=== PATIENT | male | born 1950 | race Caucasian/White ===

== ENCOUNTER 2024-06-11 10:04 | Emergency (ER) | payer MEDICARE, OTHER, SELFPAY ==
[2024-06-11 10:17] VITALS: BP 135/59
--- NOTE | 2024-06-11 11:02 | ED.GENMED ---
History of Present Illness
General
Chief Complaint: Eye Problems
Time Seen by Provider: 06/11/24 10:34
History of Present Illness
History of Present Illness:
Patient presents to the emergency department with left eye pain. Pain occurred just after touching an milk tree that fell over at his house. This contains a toxic sap. There are no spines. States he has had severe burning in the eye
since. He rinsed out thoroughly with water at home. He does not wear contact lenses. Denies light sensitivity
Past History
Past History
ED Past Medical History: CAD
ED Past Surgical History: Cardiac
Social History
Tobacco: Non-smoker
Alcohol: None
Phy Exam
Physical Exam
Physical Exam:
General: No acute distress
Head: NCAT
EYES is erythematous and injected. There is limbic sparing. Pupil is regular and round and reactive to light and accommodation. It is equal sizes with the pupil on the right. There is no corneal haziness. There is no fluorescein uptake. pH is
7. Extraocular movements are intact.
Neck, Normal in appearance, no swelling
Respiratory: No Respiratory distress
Abdomen: No distension
Ext: no edema
Neuro: VILLA, AOx4
Psych: Normal affect
Skin: Normal color
Course
Orders/Labs/Results
Orders:
Orders
06/11/24 11:54
Tetracaine HCl [Tetracaine 0.5% Ophthalmic Solution] 1 drop .ROUTE .STK-MED ONE
06/11/24 11:55
Purified Water Eye Wash [Dacriose Eye Wash Solution] 120 ml .ROUTE .STK-MED ONE
Vital Signs
Initial and Last Documented VS:
Initial Vital Signs
Temp Pulse Resp BP Pulse Ox
97.5 F 54 18 135/59 93
06/11/24 10:17 06/11/24 10:17 06/11/24 10:17 06/11/24 10:17 06/11/24 10:17
Last Documented Vital Signs
Temp Pulse Resp BP Pulse Ox
97.5 F 54 18 135/59 93
06/11/24 10:17 06/11/24 10:17 06/11/24 10:17 06/11/24 10:17 06/11/24 10:17
*Critical Care Note
Total Time (30-74mins, 75-104mins- exclusive of procedures): Not Applicable
ED Attending Note
ED Attending Note
ED Attending Note:
Chemical conjunctivitis from toxic tree Sap. There is no corneal ulceration. Visual acuity is intact. pH is wnl. I thoroughly irrigated with eyewash. Will start on topical antibiotics and refer to ophthalmology for outpatient follow-up
-
Portions of this chart may have been created with voice recognition software.� Occasional wrong word or��sound alike� substitutions may have occurred due to the inherent limitations of voice recognition software.
Discharge Plan
Departure
Patient Disposition: Home (Routine Discharge)
Date of Disposition: 06/11/24
Time of Disposition: 11:07
Patient with high blood pressure during this ER visit?: No
Discharge Problem:
Acute chemical conjunctivitis
Instructions: Conjunctivitis (Noninfectious Pinkeye) (DC)
Prescriptions:
New
erythromycin 5 mg/gram (0.5 %) ointment
0.5 inch ophthalmic (eye) BID Qty: 3.5 0RF
No Action
multivitamin 1 EACH tablet
1 ea PO DAILY
aspirin 81 MG tablet,delayed release (DR/EC)
81 mg PO DAILY
diphenhydramine HCl [Banophen] 25 MG capsule
25 mg PO HSPRN PRN (Reason: sleep)
lorazepam 1 MG tablet
1 mg PO BIDPRN PRN (Reason: anxiety for flying)
pregabalin 225 MG capsule
225 mg PO BID
nitroglycerin 0.4 MG tablet, sublingual
0.4 mg sublingual [id number] PRN (Reason: chest pain) Qty: 25 2RF
Rx Instructions:
DO NOT TAKE WITHIN 24 HOURS OF TADALAFIL
atorvastatin 80 mg tablet
80 mg PO Q48H
triamcinolone acetonide 0.5 % Cream
1 applic TOPICAL DAILYPRN PRN (Reason: eczema)
econazole nitrate 1 % cream
1 applic TOPICAL DAILYPRN PRN (Reason: to dry cracked feet)
bupropion HCl 150 mg tablet extended release 24 hr
150 mg PO DAILY
clopidogrel 75 MG tablet
75 mg PO DAILY
tamsulosin 0.4 MG capsule
0.4 mg PO HS
tadalafil 5 MG tablet
5 mg PO DAILY
Rx Instructions:
DO NOT TAKE this med within 24 hours of nitroglycerin!!
Referrals:
Roxanna Means MD [Active] -
Gregorio Valderrama MD [Family Provider] -
Activity Restrictions/Additional Instructions:
please follow up with your trademark affixer for recheck in the next week
Interventions
Interventions:
*Risk Screen - Suicide Last Done: 06/11/24 10:17
*General Assessment Last Done: 06/11/24 10:17
*Neglect/Abuse Screening Last Done: 06/11/24 11:51
*ED- Fall Risk Assessment Last Done: 06/11/24 11:51
*ED COVID-19 Vaccine History Last Done: 06/11/24 11:51
*Nursing Disposition Last Done: 06/11/24 11:51
Discharge Date and Time
Discharge Date/Time: 06/11/24 11:52
Print Language: PORTUGUESE
== END 2024-06-11 11:52 | disposition home or self-care (01) ==
LOC: EMR 10:04
PROVIDERS: EMERGENCY PHYSICIAN Emergency Medicine; FAMILY PHYSICIAN Internal Medicine
DX: T65.891A Toxic effect of other specified substances, accidental (unintentional), initial encounter (principal); H10.212 Acute toxic conjunctivitis, left eye; I25.10 Atherosclerotic heart disease of native coronary artery without angina pectoris
CPT/HCPCS: 99283

== ENCOUNTER → 2024-10-30 22:00 | Outpatient (REF) | payer MEDICARE, OTHER, SELFPAY | LOC: DHSLP 22:00 | PROVIDERS: ATTENDING PHYSICIAN Hospitalist; FAMILY PHYSICIAN Internal Medicine | DX: G47.33 Obstructive sleep apnea (adult) (pediatric) (principal) | CPT/HCPCS: 95806 ==